=== PATIENT | male | born 1975 | race African-American/Black ===

== ENCOUNTER 2016-11-05 15:34 | Inpatient (IN) | payer SELFPAY ==
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
--- NOTE | 2016-11-05 15:45 | CPEKG ---
Heart Rate: 113 RR Interval: 531 P-R Interval: 128 QRSD Interval: 88 QT Interval: 344 QTC Interval: 472 P [place]: 71 QRS [place]: 71 T Wave [place]: 58 EKG Severity - ABNORMAL ECG - EKG Impression: SINUS TACHYCARDIA EKG Impression: NONSPECIFIC T ABNORMALITIES, ANTERIOR LEADS Electronically Signed By: Clyde Jama 05-Nov-2016 15:49:17
[2016-11-05 15:48] LABS: % IMMATURE GRANULYOCYTES 0.5 % (0.0-1.1); ABSOLUTE IMMATURE GRANULOCYTES 0.09 10^3/uL (0.00-0.10); ADD DIFF? NO; ADD MORPH? NO; ADD SCAN? NO; ATYPICAL LYMPHOCYTE FLAG 0 (0-99); FRAGMENT RBC FLAG 0 (0-99); HEMATOCRIT 44.5 % (40.0-51.0); HEMOGLOBIN 15.8 g/dL (13.7-17.5); LEFT SHIFT FLG 0 (0-99); LIPEMIA HEMOLYSIS FLAG 90 (0-99); MEAN CELL HEMOGLOBIN CONCENTR. 35.5 g/dL (32.4-36.7); MEAN CELL VOLUME 87.4 fL (81.5-99.8); MEAN PLATELET VOLUME 11.4 fL (8.7-11.7); PLATELET CLUMPS FLAG 0 (0-99); PLATELET COUNT 242 10^3/uL (150-400); RED BLOOD CELL COUNT 5.09 10^6/uL (4.40-6.38); RED CELL DISTRIBUTION WIDTH 12.2 % (11.5-15.2)
[2016-11-05 16:03] LABS: ANION GAP 18 mEq/L (8-16); CALCIUM 10.7 mg/dL (8.5-10.4); CARBON DIOXIDE 16 mEq/l (22-31); CHLORIDE 113 mEq/L (97-110); CREATININE 2.4 mg/dL (0.7-1.3); ETHANOL SERUM < 10 mg/dL (0-10); GLOMERULAR FILTRATION RATE 30; GLUCOSE 42 mg/dL (70-100); POTASSIUM 4.3 mEq/L (3.5-5.2); SALICYLATE < 1.0 mg/dL (2.0-20.0); SODIUM 147 mEq/L (134-144)
[2016-11-05] MEDS ORDERED: NS 1,000 ML IV ONE ×2 (16:15)
[2016-11-05] MEDS ORDERED: D50W 25 GM/50 ML SYR IVP ONE (16:17)
[2016-11-05 16:20] LABS: CK-MB INTERPRETATION NEGATIVE (NEGATIVE)
[2016-11-05 16:21] LABS: CREATINE KINASE-MB FRACTION 6.19 ng/mL (0-3.19)
[2016-11-05] MEDS ORDERED: LORazepam 2 MG/ML INJ IVP PRN (18:38)
[2016-11-05] MEDS ORDERED: ONDANSETRON 4 MG/2 ML VIAL IVP PRN (18:38)
[2016-11-05] MEDS ORDERED: ACETAMINOPHEN 325 MG TAB PO PRN (18:38)
[2016-11-05] MEDS ORDERED: PROMETHAZINE HCL 25 MG/ML INJ IVP PRN (18:38)
[2016-11-05] MEDS ORDERED: ONDANSETRON DISINTEGRATING 4 MG TAB PO PRN (18:38)
[2016-11-05] MEDS ORDERED: HYDROmorphONE/DILAUDID 1 MG/ML SYR IVP PRN (18:38)
[2016-11-05] MEDS ORDERED: NS 1,000 ML IV SCH (18:45)
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
[2016-11-05] MEDS ORDERED: HALOPERIDOL LACT 5 MG/ML INJ IVP PRN (18:49)
[2016-11-05] MEDS ORDERED: DEXMEDETOMIDINE HCL 400 MCG in NS 100 ML IV SCH (19:00)
[2016-11-05] MEDS ORDERED: D50W 25 GM/50 ML SYR IVP PRN (19:09)
[2016-11-05] MEDS ORDERED: PROTOCOL CALCIUM 1 DOSE IV PRN (19:11)
[2016-11-05] MEDS ORDERED: PROTOCOL MAGNESIUM 1 DOSE IV PRN (19:11)
[2016-11-05] MEDS ORDERED: PROTOCOL K PHOSPHATE 1 DOSE IV PRN (19:11)
[2016-11-05] MEDS ORDERED: PROTOCOL POTASSIUM 1 DOSE MISC PRN ×2 (19:11)
[2016-11-05 19:16] LABS: ALBUMIN 4.6 g/dL (3.5-5.0); BILIRUBIN,TOTAL 4.4 mg/dL (0.1-1.4); BILIRUBIN-CONJUGATED 1.1 mg/dL (0.0-0.5); BILIRUBIN-UNCONJUGATED 3.3 mg/dL (0.0-1.1); TOTAL PROTEIN 7.9 g/dL (6.3-8.2)
[2016-11-06] MEDS ORDERED: NS 1,000 ML IV SCH (00:45)
[2016-11-06] MEDS: POTASSIUM Cl (KCl) 100 ML IV SCH ×2 (02:13→03:11)
[2016-11-06 05:24] LABS: IONIZED CALCIUM 1.21 MMOL/L (1.12-1.30)
[2016-11-06 05:26] LABS: % IMMATURE GRANULYOCYTES 0.3 % (0.0-1.1); ABSOLUTE IMMATURE GRANULOCYTES 0.03 10^3/uL (0.00-0.10); ADD DIFF? NO; ADD MORPH? NO; ADD SCAN? NO; ATYPICAL LYMPHOCYTE FLAG 0 (0-99); FRAGMENT RBC FLAG 0 (0-99); HEMATOCRIT 37.9 % (40.0-51.0); HEMOGLOBIN 12.9 g/dL (13.7-17.5); LEFT SHIFT FLG 0 (0-99); LIPEMIA HEMOLYSIS FLAG 90 (0-99); MEAN CELL HEMOGLOBIN 31.3 pg (27.9-34.1); MEAN PLATELET VOLUME 10.8 fL (8.7-11.7); PLATELET CLUMPS FLAG 0 (0-99); PLATELET COUNT 165 10^3/uL (150-400); RED BLOOD CELL COUNT 4.12 10^6/uL (4.40-6.38); RED CELL DISTRIBUTION WIDTH 12.7 % (11.5-15.2)
[2016-11-06 05:39] LABS: ANION GAP 7 mEq/L (8-16); CALCIUM 8.5 mg/dL (8.5-10.4); CARBON DIOXIDE 21 mEq/l (22-31); CHLORIDE 111 mEq/L (97-110); CREATININE 1.4 mg/dL (0.7-1.3); GLOMERULAR FILTRATION RATE 55; GLUCOSE 81 mg/dL (70-100); MAGNESIUM 2.2 mg/dL (1.6-2.3); POTASSIUM 3.9 mEq/L (3.5-5.2); SODIUM 139 mEq/L (134-144)
[2016-11-06 05:47] LABS: TROPONIN I < 0.012 ng/mL (0-0.034)
[2016-11-06 06:15] LABS: CK-MB INTERPRETATION NEGATIVE (NEGATIVE)
[2016-11-06 06:16] LABS: CREATINE KINASE-MB FRACTION 5.46 ng/mL (0-3.19)
[2016-11-06] MEDS ORDERED: ENOXAPARIN 40 MG/0.4 ML SYR SC SCH (09:00)
[2016-11-06 10:50] VITALS: BP 119/81; TEMP 98
[2016-11-06] MEDS ORDERED: POTASSIUM CL 10 MEQ TAB PO ONE (11:05)
--- NOTE | 2016-11-06 11:13 | HOSPPROG ---
Hospitalist Progress Note Assessment/Plan: #Acute encephalopathy: due to meth ingestion. Resolved #Psychosis: due to meth. Resolved, denies SI, HI #Substance abuse: meth positive. Counseled on cessation #Anion gap acidosis: due to dehydration, improved with IVFs #Mild rhabdo: IVFs #HIV: cont home meds #Disp: DC today Subjective: denies HI, SI Objective: Vital Signs Temp Pulse Resp BP Pulse Ox 36.6 C 76 17 119/81 H 94 11/06/16 08:00 11/06/16 08:00 11/06/16 08:00 11/06/16 08:00 11/06/16 08:00 Laboratory Results 11/06/16 05:10 11/06/16 05:10 11/05/16 11/06/16 11/07/16 05:59 05:59 05:59 Intake Total 4435 450 Balance 4435 450 - Physical Exam Constitutional: no apparent distress Eyes: PERRL Ears, Nose, Mouth, Throat: moist mucous membranes Cardiovascular: regular rate and rhythym Respiratory: no respiratory distress, no rales or rhonchi Gastrointestinal: normoactive bowel sounds, soft, non-tender abdomen Genitourinary: no bladder fullness Skin: warm Musculoskeletal: full muscle strength Neurologic: AAOx3, CN II-XII Intact Psychiatric: interacting appropriately, flat affect ICD10 Worksheet Patient Problems: Problems Problem Status Onset Acute renal failure Acute Hypoglycemia Acute Psychotic disorder Acute
[2016-11-06] MEDS ORDERED: K PHOS 10 MMOL in D5W 250 ML IV ONE (12:00)
[2016-11-06 13:35] VITALS: PULSE 84; RESP 14; O2SAT 95
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
[2016-11-07] MEDS ORDERED: [UNRECOGNIZED DRUG - OTHER] PO SCH ×2 (09:00→11:11)
== END 2016-11-06 20:48 | disposition home or self-care (01) | DRG 682 ==
LOC: EEVIPCON 16:18 → F2N 18:46
PROVIDERS: ADMIT Internal Medicine; ATTEND Internal Medicine
DX: N17.9 Acute kidney failure, unspecified (principal); F15.121 Other stimulant abuse with intoxication delirium; G92 Toxic encephalopathy; M62.82 Rhabdomyolysis; E87.2 Acidosis; E86.0 Dehydration; E16.2 Hypoglycemia, unspecified; E83.39 Other disorders of phosphorus metabolism; Z21 Asymptomatic human immunodeficiency virus [HIV] infection status; R93.0 Abnormal findings on diagnostic imaging of skull and head, not elsewhere classified; R94.31 Abnormal electrocardiogram [ECG] [EKG]
CPT/HCPCS: 80305; 82947-QW; 96374; G0480